=== PATIENT | female | born 1945 | race African-American/Black ===

== ENCOUNTER → 2017-09-05 | Outpatient (CLI) | payer MEDICARE, OTHER ==
[~2017-09-05] MED LIST: ASPI-556 PO; CARI350T PO; CARV25TA32 PO; CHOL20004 PO; CLON0.2T PO; CYAN1TAB44 PO; FURO40SO4 PO; HYDR-4061 PO; ISOS30TA6 PO; K1015L PO; LISI-662 PO; METF850T PO; MULT-1259 PO; NIFE30TA91 PO; NITR.4 SL; NITR0.4T SL; OMEP20TA2 PO; SIMV20TA6 PO
== END | disposition home or self-care (01) ==
LOC: RADMN 12:07
PROVIDERS: ATTEND Internal Medicine Cardiovascular Disease
DX: J84.10 Pulmonary fibrosis, unspecified (principal); R91.8 Other nonspecific abnormal finding of lung field; E27.8 Other specified disorders of adrenal gland; I70.229 Atherosclerosis of native arteries of extremities with rest pain, unspecified extremity
CPT/HCPCS: 71250